=== PATIENT | female | born 1995 | race Caucasian/White ===

== ENCOUNTER → 2016-06-26 | Outpatient (CLI) | payer BC ==
[~2016-06-26] MED LIST: BCPILLS PO; BUPR-83 PO; FLUO20CA35 PO; NXM/40 PO; PRED50TA PO
[2016-06-28 00:51] LABS: CHLAMYDIA TRACH RNA*** NOT DETECTED (NOT DETECTED); GC (NEIS GONORRHOEAE)RNA** NOT DETECTED (NOT DETECTED)
== END | disposition home or self-care (01) ==
LOC: C.LABSPEC 10:52
PROVIDERS: ATTEND Family Medicine
DX: Z01.411 Encounter for gynecological examination (general) (routine) with abnormal findings (principal); R87.616 Satisfactory cervical smear but lacking transformation zone; Z72.51 High risk heterosexual behavior

== ENCOUNTER → 2016-06-26 | Outpatient (CLI) | payer BC | END | disposition home or self-care (01) | LOC: C.PAPS 12:48 | PROVIDERS: ATTEND Family Medicine | DX: Z01.411 Encounter for gynecological examination (general) (routine) with abnormal findings (principal); R87.616 Satisfactory cervical smear but lacking transformation zone ==

== ENCOUNTER → 2016-06-27 | Outpatient (CLI) | payer BC ==
--- NOTE | 2016-06-27 16:09 | DIAGNOSTIC IMAGING REPORT ---
LEFT UPPER QUADRANT ULTRASOUND CLINICAL HISTORY: Left upper quadrant abdominal swelling. COMPARISON STUDY: No previous studies for comparison. TECHNIQUE: Sonography of the left upper quadrant/inferior chest was performed at site of swelling. FINDINGS: No mass, fluid collection or other sonographic abnormality was identified within the left upper quadrant. IMPRESSION: No sonographic abnormality identified within the left upper quadrant. Clinical follow up to ensure stability is recommended. If interval enlargement, a repeat ultrasound is recommended. Electronically signed by: Henry Rodriguez M.D. 06/27/2016 4:07 PM Dictated Date/Time: 06/27/2016 4:05 PM
== END | disposition home or self-care (01) ==
LOC: C.ULTR 15:31
PROVIDERS: ATTEND Family Medicine
DX: R19.02 Left upper quadrant abdominal swelling, mass and lump (principal); J90 Pleural effusion, not elsewhere classified

== ENCOUNTER 2016-11-02 21:30 | Emergency (ER) | payer BC, OTHER ==
[~2016-11-02] VITALS: Ht 152.4 cm; Wt 61.4 kg
[~2016-11-02 21:30] MED LIST changes: -FLUO20CA35 PO; -NXM/40 PO; -PRED50TA PO
[2016-11-02 21:39] VITALS: TEMP 36.9; Ht 152.4 cm; Wt 61.4 kg
[2016-11-02] MEDS ORDERED: RANITIDINE HCL 50 MG/100 ML D5W IV STA (21:48)
[2016-11-02] MEDS ORDERED: DEXAMETHASONE SOD INJ 10 MG/ML VIAL IV ONE (22:00)
[2016-11-02] MEDS ORDERED: NXM/40 PO (22:03)
[2016-11-02] MEDS ORDERED: FLUO20CA35 PO (22:03)
[2016-11-02] MEDS ORDERED: EPINEPHRINE ADULT AUTO-INJECT 0.3 MG SYR IM STA (23:24)
[2016-11-02] MEDS ORDERED: PRED50TA PO (23:26)
[2016-11-02 23:38] VITALS: BP 117/82; PULSE 66; O2SAT 98
--- NOTE | 2016-11-03 00:02 | EMERGENCY ROOM VISIT NOTE ---
History First contact with patient: 21:42 Chief Complaint: ALLERGIC REACTION Stated Complaint: HIVES Nursing Triage Summary: pt states she developed hives yesterday, taken benadryl and not going away, pt unsure what she is having an allergic reaction to because she ate a lot of food yesterday. History of Present Illness The patient is a 21 year old female who presents to the Emergency Room with complaints of hives for the past day. Patient denies new foods soaps or detergents. She took Benadryl just prior to arrival. Patient plans of an itchy rash that changes spots throughout her body. Patient denies chest pain, dyspnea, throat tightness, abdominal pain, vomiting, diarrhea, numbness, tingling, vision problems. She is tolerate by mouth fluids and food. Review of Systems See HPI for pertinent positives & negatives. A total of 10 systems reviewed and were otherwise negative. Past Medical/Surgical History Depression Social History Smoking Status: Never Smoker Smokeless Tobacco Use: No Drug Use: none Current/Historical Medications Scheduled Control Pills ( Control Pills), 1 TAB PO DAILY Esomeprazole Magnesium (Nexium), 40 MG PO DAILY Fluoxetine (Prozac), 20 MG PO QPM Prednisone (Prednisone), 50 MG PO DAILY Allergies Coded Allergies: No Known Allergies (Unverified , NONE, 11/02/16) Physical Exam Vital Signs Date Time Temp Pulse Resp B/P Pulse Ox O2 Delivery O2 Flow Rate FiO2 11/02/16 23:38 66 18 117/82 98 Room Air 11/02/16 21:39 36.9 79 18 142/102 96 Room Air Pain Rating (0-10): 0 Physical Exam VITALS: Vitals are noted on the nurse's note and reviewed by myself. Vital signs stable. GENERAL: Pleasant female, in no acute distress, nondiaphoretic, well-developed well-nourished. SKIN: Diffuse erythematous raised dermatitis that is blanchable most consistent with hives The rest of the skin was without rashes, erythema, edema, or bruising. There is no tenting of the skin. Capillary reflex less than 2 seconds. HEAD: Normocephalic atraumatic. EARS: External auditory canals clear, tympanic membranes pearly villegas without erythema or effusion bilaterally. EYES: Pupils equal round and reactive to light and accommodation. Conjunctivae without injection, sclerae without icterus. Extraocular movements intact. NOSE: Patent, turbinates without inflammation or discharge. MOUTH: Mucous membranes moist. Pharynx without erythema or exudate. Uvula midline. Airway patent. Tongue does not deviate. No airway compromise. No facial swelling. No lip swelling. NECK: Supple without nuchal rigidity. No lymphadenopathy. No thyromegaly. Cervical spine is nontender. No JVD. HEART: Regular rate and rhythm without murmurs gallops or rubs. LUNGS: Clear to auscultation bilaterally without wheezes, rales or rhonchi. No dullness to percussion. No retractions or accessory muscle use. ABDOMEN: Positive bowel sounds x 4. Normal tympanic percussion. Soft, nontender, without masses or organomegaly. Caraballo sign negative. No guarding or rebound tenderness. MUSCULOSKELETAL: No muscle atrophy, erythema, or edema noted. NEURO: Patient was alert and oriented to person place and time. Normal sensation to light and sharp touch. No focal neurological deficits. Medical Decision & Procedures Medications Administered Medications (Trade) Dose Ordered Sig/Adan Route Start Time Stop Time Status Last Admin Dose Admin Dexamethasone Sodium Phosphate (Decadron Inj) 10 mg NOW ONCE IV 11/02/16 22:00 11/02/16 22:01 DC 11/02/16 22:00 10 MG Ranitidine HCl (zANTac IV) 50 mg NOW STAT IV 11/02/16 21:48 11/02/16 21:50 DC 11/02/16 21:48 50 MG Epinephrine (Epipen) 0.3 mg ONE STAT IM 11/02/16 23:24 11/02/16 23:25 DC 11/02/16 23:47 0.3 MG ED Course Prior records/ancillary studies reviewed. Triage Nursing notes reviewed. Additional history obtained from boyfriend. The patient's history was concerning for possible allergic reaction. Differential diagnosis: Etiologies such as allergic reaction, anaphylaxis, urticaria, Paul-Aurelio syndrome, toxic epidermal necrolysis, erythema multiforme, cellulitis, as well as others were entertained. Physical examination: As above. ER treatment provided: Continuous cardiac monitoring Patient already took Benadryl Zantac 50 mg IV Decadron 10 mg IV On reassessment the patient felt better. Diagnostic interpretation by me: Deferred It appears the patient had an allergic reaction. The above treatment did well to reverse the symptoms. After prolonged monitoring and frequent reassessments the patient did very well and symptoms resolved. The patient was counseled on the spectrum of this disease process and told to avoid potential triggers. I gave my usual and customary discussion regarding this issue. By the evaluation outlined above emergent etiologies such as recurring anaphylaxis, anaphylatic shock, airway compromise, Paul-Aurelio syndrome, toxic epidermal necrolysis, erythema multiforme, infectious etiologies, as well as others were deemed relatively unlikely. The pt informed about the findings as listed above. All questions were answered and pleased with the treatment. Return instructions were outlined and the patient was discharged in stable condition. Outpatient prescription management: EpiPen prednisone Referral: The patient was referred back to primary care physician for follow-up in 2-3 days for a recheck of the current condition. Medical Decision As above Impression Primary Impression: Urticaria Departure Information Dispostion Home / Self-Care Condition GOOD Prescriptions Prednisone (Prednisone) 50 Mg Tab 50 MG PO DAILY for 4 Days, #4 TAB Prov: Vanessa Carey ., MARGARITA 11/02/16 Referrals Girish Leslie DO (PCP) Forms HOME CARE DOCUMENTATION FORM, IMPORTANT VISIT INFORMATION Patient Instructions My [facility], ED Allergic Reaction General Other Additional Instructions DO NOT drive, drink alcohol, operate machinery, or perform dangerous activities today. You were given medications in the ER that can affect your ability to safely function or operate a vehicle. Epi-Pen: Use one injection as instructed for severe allergic reactions associated with shortness of breath, difficulty breathing, or throat or tongue swelling. If you use this injection call 911 or proceed immediately to the nearest Emergency Room. Prednisone 50mg: Once daily until the prescription is finished. It is best to take this earlier in the day as some patients note occasional difficulty falling asleep when taken in the late evening. Diphenhydramine(Benadryl) 25mg: use 25 to 50 mg every six hours for swelling, itching, or hives. This medication is sedating and will cause drowsiness. Avoid alcohol, operating machinery or dangerous equipment, working on ladders or roofs, DRIVING, or situations where being under the influence may be dangerous. Zantac 75: Take two pills twice a day along with Benadryl as needed for swelling , itching, or hives. Most people know this for its affect on the stomach, but it also acts similar to, but less potent than Benadryl for allergic reactions. Both the Benadryl and the Zantac are available [id number]. Continue current medications. Return to the emergency department for worsening of your rash, swelling of your face, lips, tongue, or throat, difficulty breathing, vomiting, or as needed. Follow-up with your primary care physician in 2 to 3 days for a recheck of your current condition.
== END 2016-11-02 23:45 | disposition home or self-care (01) ==
LOC: C.EDB 21:32 → C.EDA 23:45
DX: L50.0 Allergic urticaria (principal); F32.9 Major depressive disorder, single episode, unspecified; Z79.3 Long term (current) use of hormonal contraceptives; Z79.899 Other long term (current) drug therapy

== ENCOUNTER → 2017-07-23 | Outpatient (CLI) | payer BC ==
[~2017-07-23] MED LIST changes: -BUPR-83 PO; +FLUO20CA35 PO; +NXM/40 PO
== END | disposition home or self-care (01) ==
LOC: C.PAPS 15:21
PROVIDERS: ATTEND Family Medicine
DX: Z12.72 Encounter for screening for malignant neoplasm of vagina (principal)

== ENCOUNTER → 2017-07-23 | Outpatient (CLI) | payer BC | END | disposition home or self-care (01) | LOC: C.LABSPEC 14:08 | PROVIDERS: ATTEND Family Medicine | DX: Z11.3 Encounter for screening for infections with a predominantly sexual mode of transmission (principal) ==